=== PATIENT | male | born 1990 | race Caucasian/White ===

== ENCOUNTER 2024-08-31 17:58 | Emergency (ER) | payer MEDICAID, SELFPAY ==
[2024-08-31 17:59] VITALS: BP 180/80; PULSE 110; RESP 18; TEMP 36.7; O2SAT 97; BMI 27.9
[2024-08-31 18:21] VITALS: PULSE 116; RESP 22; O2SAT 96
--- NOTE | 2024-08-31 18:27 | PD.EDSEIZ ---
ED Seizures RME/HPI General Chief Complaint: Seizure Stated Complaint: POST SEIZURE Time Seen by Provider: 08/31/24 18:20 Arrival date/time: 08/31/24 17:58 RME / HPI RME / HPI Narrative: 33-year-old male patient with significant history of type 1 diabetes mellitus, came in with EMS for evaluation regarding witnessed tonic-clonic seizure. Patient was doing house to house, selling solar pattern, while knocking on the door, patient developed witnessed tonic-clonic seizure lasted for few minutes. Patient bit his tongue. Patient told me that this is his more than 10 times having seizure when his blood sugar is low. During that time his blood sugar dropped to 47. Currently patient is alert oriented x 3, and denies any complaints. Patient is not taking any seizure medications. Related Data Allergies Allergy/AdvReac Type Severity Reaction Status Date / Time No Known Allergies Allergy Verified 08/31/24 18:20 Review of Systems Review of Systems Narrative Review of Systems: Review of system reviewed and within normal limits except mentioned in HPI ED Exam Narrative Physical exam: VITAL SIGNS: Reviewed. GENERAL APPEARANCE: Alert and interactive, follows commands, no acute distress, HEAD AND FACE: Non-traumatic. ENT: PERRL, pink conjunctivitis, eyelid no trauma, Mucous membrane moist. Abrasion noted on the left side of the tongue NECK: Supple, nontender, no nuchal rigidity. CHEST: No tenderness, no crepitus, no paradoxical movement, no retractions. LUNGS: Clear, well ventilated, symmetric, no rales, no wheezing, no ronchi, no stridor, good breath sounds bilaterally. HEART: Regular rate, regular rhythm, no murmur, no gallops. ABDOMEN: Soft, positive bowel sounds, nondistended, no guarding, nontender, no rebound, no masses, RECTAL: Deferred. GENITAL: Deferred. NEUROLOGICAL: Gross motor function intact sensory function intact, Appropriate for age. MUSCULOSKELETAL: low back nontender, full range of motion. EXTREMITIES: Nontender, full range of motion. SKIN: Color pink, dry, no rash, no lacerations, no abrasions, no contusions. LYMPHATICS: Deferred. Course Quality Measures none Orders Category Date Time Status CBC [CBC] Stat Lab 08/31/24 18:45 Completed CMP [Comprehensive Metabolic Panel] Stat Lab 08/31/24 18:45 Completed UA, C/S IF [Urinalysis, C/S if Indicated] Stat Lab 08/31/24 18:45 Completed Vital Signs Vital signs: Vital Signs Temperature 98.1 F 08/31/24 17:59 Pulse Rate 110 H 08/31/24 17:59 Respiratory Rate 18 08/31/24 17:59 Blood Pressure 180/80 H 08/31/24 17:59 Pulse Oximetry (%) 97 08/31/24 17:59 Oxygen Delivery Method Room Air 08/31/24 17:59 Seizure MDM Narrative MDM Narrative:: Patient was given sandwich in the emergency room. Blood sugar was noted to be 101 prior to discharge. No recurrence of seizure noted in the emergency room. Patient told me that every time his blood sugar dropped he developed seizure. 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 However patient was not fully worked up with neurologist in the past. Patient was advised to see PCP and for referral to neurologist once he got back to [place]. Patient data External records reviewed:: None Clinical information provided by:: patient Social determinants that could affect healthcare access:: none Patient has the following chronic illnesses:: Type 1 diabetes mellitus How is presenting disease/condition affected by chronic disease/condition?: exacerbated by Evaluation data The following diagnostics were reviewed and interpreted by me:: lab results Lab and/or radiology exams considered but not ordered:: None Interpretation Summary: Laboratory workup workup unremarkable. Medications / Prescriptions Medications or Prescriptions considered but not ordered:: None Medication administrations:: None Consultations Consultation(s) initiated? (list below): No Diagnosis Seizure Differential Diagnosis: intractable seizure disorder, new onset seizure and epileptic seizure Most likely diagnosis given after review of the tests above:: Breakthrough seizure, hypoglycemia Admission Indicated Admission indicated?: not indicated Admission Request Was there a request for admission?: No Admission Attestation Admission request attestation: Stable Disposition Plan Disposition Plan: Discharge Discharge Attestation Discharge Attestation: The patient was given an opportunity to ask questions and understood the discharge instructions. Discharge instructions specifically effects, indications for sooner follow up or return to the emergency department, and the expected course of current diagnosis. Patient condition: Stable Discharge Plan Plan Patient Disposition: HOME (Self Care) Disposition Comment: stable Problem List Clinical Impression: Seizure, Hypoglycemia Patient/Caregiver Discharge Instructions Education Materials: Hypoglycemia (Low Blood Sugar) Additional Instructions: Thank you for the opportunity for serving you today. You are stable for discharged . You are advised to: Follow-up with your PCP in 1 to 2 days Return to ED for worsening of symptoms Please ask your PCP to refer you to a neurologist for outpatient workup with your seizure You are not allowed to drive vehicle, operate machinery, swimming or climbing. Until cleared by your PCP Print Language: Guyanese Stand Alone Forms: Jessica Award Info., Patient Portal Info Letter PA/JATINDER Supervising Physician FRANCISCO/JATINDER Supervising Physician: MD Nidia
[2024-08-31 18:51] LABS: Collection Type, Urine Catheter; Squamous Epithelial Cell,Urine 0 /hpf (0-5)
[2024-08-31 19:09] LABS: Alanine Aminotransferase 24 U/L (10-49); Albumin, Serum 4.6 gm/dL (3.5-5.0); Albumin/Globulin Ratio 1.6 (1.2-2.2); Alkaline Phosphatase 72 U/L (46-116); Anion Gap 14 (7-16); Aspartate Amino Transferase 31 U/L (0-34); BUN/Creatinine Ratio 6 Ratio (12-20); Bilirubin,Total 0.4 mg/dL (0.3-1.2); Blood Urea Nitrogen 9 mg/dL (9-23); Calcium 9.3 mg/dL (8.3-10.6); Calcium (Corrected) 9.3 mg/dL (8.5-10.1); Carbon Dioxide 20.1 mMol/L (20.0-31.0); Chloride 102 mMol/L (98-107); Creatinine (Component) 1.4 mg/dL (0.6-1.3); Estimated Creatinine Clearance 85.6 mL/min (>60); Globulin 2.8 gm/dL (2.3-3.5); Glucose 169 mg/dL (74-106); Osmolality,Calculated 274 (275-295); Potassium 3.3 mMol/L (3.4-5.1); Sodium 136 mMol/L (136-145); Total Protein 7.4 gm/dL (5.7-8.2); eGFR > 60 See Note
[2024-08-31 19:14] LABS: Basophils % (Auto) 1 % (0-2.5); Eosinophils # (Auto) 0.1 Thou/mm3 (0.0-0.5); Eosinophils % (Auto) 1 % (0-10); Hematocrit 46.4 % (41.0-53.0); Hemoglobin 15.6 g/dL (13.5-16.0); Immature Granulocytes % (Auto) 1 % (0-0); Immature Granulocytes Auto 0.05 Thou/mm3 (0.00-0.00); Lymphocytes # (Auto) 2.2 Thou/mm3 (1.0-4.8); Lymphocytes % (Auto) 34 % (10-50); Mean Corpuscular HGB Conc 33.6 g/dl (31.0-37.0); Mean Corpuscular Hemoglobin 29.8 pg (25.0-35.0); Mean Corpuscular Volume 89 fL (80-100); Monocytes # (Auto) 0.4 Thou/mm3 (0.0-0.8); Monocytes % (Auto) 6 % (0-12); Neutrophils # (Auto) 3.6 Thou/mm3 (1.8-7.7); Neutrophils % (Auto) 57 % (37-80); Nucleated Red Blood Cell % 0 /100 WBC (0); Platelet Count 291 Thou/mm3 (140-440); Red Blood Count 5.23 Miln/mm3 (4.50-5.90); White Blood Count 6.4 Thou/mm3 (3.8-10.6)
[2024-08-31 19:17] LABS: Bilirubin,Urine Negative (Negative); Blood,Urine 1+ (Negative); Clarity,Urine Clear (Clear/Hazy); Color,Urine Lt-Yellow (Lt Yel-Yel); Culture Indicated,Urine Not Indicated; Glucose, Urine 2+ (Negative); Ketones,Urine Negative (Negative); Leukocyte Esterase,Urine Negative (Negative); Nitrite,Urine Negative (Negative); Protein,Urine 1+ (Neg - Trace); RBC,Urine 1 /hpf (0-3); Specific Gravity,Urine 1.016 (1.001-1.035); Urobilinogen,Urine Negative mg/dL (0.0-1.0); WBC,Urine 2 /hpf (0-5)
--- NOTE | 2024-08-31 21:46 | PC.NURSE ---
RN went to DC pt, pt was gone, Iv found lying in bed with gown and leads.
== END 2024-08-31 20:30 | disposition home or self-care (01) ==
LOC: SERX 21:22
PROVIDERS: Nurse Practitioner Family; Emergency Provider Emergency Medicine
DX: E10.649 Type 1 diabetes mellitus with hypoglycemia without coma (principal); R56.9 Unspecified convulsions
CPT/HCPCS: 36415; 80053; 81001; 85025; 99283